=== PATIENT | male | born 1990 | race Two or more races ===

== ENCOUNTER 2017-01-03 15:15 | Emergency (ER) | payer OTHER ==
[~2017-01-03] VITALS: Ht 175.3 cm; Wt 93.4 kg
[2017-01-03] MEDS ORDERED: ACETAMINOPHEN ES 500 MG TABLET PO ONE (16:15)
[2017-01-03] MEDS ORDERED: IBUPROFEN 800 MG TABLET PO ONE (16:15)
[2017-01-03] MEDS ORDERED: ACETAMINOPHEN ES 500 MG TABLET ONE (16:28)
[2017-01-03] MEDS ORDERED: IBUPROFEN 800 MG TABLET ONE (16:29)
--- NOTE | 2017-01-03 17:21 | NUR ---
Patient discharged to home in stable conditon. Written and verbal after care instructions given. Patient verbalizes understanding of instructions.
== END 2017-01-03 17:22 | disposition home or self-care (01) ==
LOC: ER 15:17
DX: J11.1 Influenza due to unidentified influenza virus with other respiratory manifestations (principal); Z88.0 Allergy status to penicillin
CPT/HCPCS: 36415; 86403; 87070; 87400; 99284; A4663